=== PATIENT | female | born 1975 | race African-American/Black ===

== ENCOUNTER 2017-03-24 22:15 | Emergency (ER) | payer OTHER ==
[~2017-03-24] VITALS: Ht 157.5 cm; Wt 81.7 kg
[~2017-03-24 22:15] MED LIST: ALBUTEROL2.5 MG/31 IH; AZITHROMYCIN 2250 MG PO; DIFLUCAN150 MG PO; DUONEB 2.5-0.5 M3 ML IH; FLAGYL 250 MG250 MG PO; IBUPROFEN 600600 M1 PO; MACROBID 100 M100 M1 PO; NOHOMEMEDICATIONS; NORCO 5-325 TA1 EACH PO; PENICILLIN V P500 MG PO; PREDNISONE 10 M10 MG PO; PREDNISONE 20 M20 MG PO; PRENATAL PO; PROVENTIL IN; TUSSIONEX PENN473 ML PO; ULTRAM 50MG TAB50 MG PO
[2017-03-24] MEDS ORDERED: NORCO 5-325 TA1 EACH PO (23:24)
[2017-03-24] MEDS ORDERED: IBUPROFEN 600600 M1 PO (23:24)
[2017-03-25 00:02] VITALS: BP 132/86
== END 2017-03-25 00:07 | disposition home or self-care (01) ==
LOC: ER 22:15
DX: S92.351A Displaced fracture of fifth metatarsal bone, right foot, initial encounter for closed fracture (principal); F17.210 Nicotine dependence, cigarettes, uncomplicated; X58.XXXA Exposure to other specified factors, initial encounter; Y93.67 Activity, basketball; Y92.310 Basketball court as the place of occurrence of the external cause; Y99.8 Other external cause status